=== PATIENT | male | born 1965 | race Caucasian/White ===

== ENCOUNTER → 2017-08-15 | Outpatient (CLI) | payer OTHER ==
[2014-05-05 13:34] VITALS: BMI 27.3
[~2017-08-15] MED LIST: AMOX-559 PO; DIPH0.5D12 IM; FLUT16SP19 NS; HYDR-4309 PO; HYDR2TAB74 PO; LORA-639 PO; LORA-788 PO; ONDA4TAB97 PO; PROM-110 PO; PROM5SYR PO
--- NOTE | 2017-08-15 18:27 | RADIOLOGY IMAGING REPORT ---
FACILITY: [facility] PATIENT NAME: Jhon Awan : 1965 MR: [id number] V: [id number] EXAM DATE: ORDERING PHYSICIAN: SALVADOR PADRON TECHNOLOGIST: [place] [facility] [place] Patient: Jhon Awan : 1965 Visit/Account:[id number] Date of Sevice: 08/15/2017 Chest 2 views: HISTORY: History of pneumonia proximally one year ago, current symptoms or cough, congestion, no pain COMPARISON: 05/04/2014 FINDINGS: Frontal and lateral chest: Cardiomediastinal silhouette is within normal limits. There is p rominence of the perihilar markings and peribronchial thickening, findings which can be seen with bro nchitis, viral pneumonitis or exacerbation of reactive airways disease. There is no lobar consolidati on or pleural effusion. No pneumothorax. Pulmonary vasculature is normal. Osseous structures are within normal limits. IMPRESSION: Findings suggesting bronchitis, viral pneumonitis or exacerbation of reactive airways dis ease. There is no radiographic evidence of a focal pneumonia. Report Dictated By: Chichi Whitmore MD at 08/15/2017 6:22 PM Report E-Signed By: hCichi Whitmore MD at 08/15/2017 6:23 PM WSN:[id number]
== END ==
LOC: RAD 16:35
PROVIDERS: ATTEND Emergency Medicine
DX: Z87.01 Personal history of pneumonia (recurrent) (principal); R05 Cough
CPT/HCPCS: 71046

== ENCOUNTER 2018-01-25 01:43 | Emergency (ER) | payer OTHER ==
[2014-05-05 13:34] VITALS: Wt 88.5 kg
[~2018-01-25 01:43] MED LIST changes: -DIA5 PO; -OXYC-865 PO; -PRED20TA6 PO
--- NOTE | 2018-01-25 01:49 | ER Report ---
History and Physical Time Seen By MD: 01:49 HPI/ROS CHIEF COMPLAINT: Lumbar back pain with radiation down the left leg posteriorly to the calf HISTORY OF PRESENT ILLNESS: Patient is a 52-year-old male with known history of disc herniation here with complaints of acute exacerbation of lower back pain with now with radiation down the left leg. Patient does not take medications at baseline however attempted taking a tramadol and gabapentin this evening without relief of symptoms. Patient denies fevers, bowel or bladder incontinence , bladder retention, saddle anesthesia. Patient reports worsening pain with movement. Denies trauma to the back. REVIEW OF SYSTEMS: Constitutional: No fever, no chills. Eyes: No discharge. ENT: No sore throat. Cardiovascular: No chest pain, no palpitations. Respiratory: No cough, no shortness of breath. Gastrointestinal: No abdominal pain, no vomiting. Genitourinary: No hematuria. Musculoskeletal: + severe back pain. Skin: No rashes. Neurological: + back pain with radiation to knee/calf Allergies: Coded Allergies: glycopyrrolate (Verified Allergy, Severe, SWELLING, 01/25/18) hydroxyzine (Verified Allergy, Severe, SWELLING, 01/25/18) meperidine (Verified Allergy, Severe, SWELLING, 01/25/18) Home Meds Active Scripts Prednisone (PREDNISONE) 20 Mg Tablet, 40 MG PO QDAY for 5 Days, #10 TAB Prov:VIKTOR OH DO 01/25/18 Diazepam (VALIUM) 5 Mg Tablet, 5 MG PO 2-3XD, #15 TAB Prov:VIKTOR OH DO 01/25/18 Oxycodone Hcl/Acetaminophen (PERCOCET 5-325 MG TABLET) 1 Each Tablet, 1 EACH PO Q4H Y for PAIN, #12 TAB 0 Refills Prov:VIKTOR OH DO 01/25/18 Fluticasone Prop 50 Mcg Ns (FLONASE 50 MCG NS) 16 Gm [place].susp, 2 SPRAYS NS QDAY, #1 BOT Prov:SALVADOR PADRON MD 08/15/17 Hx Smoking: No Smoking Status: Never Smoker Constitutional Vital Sign - Last 24 Hours 01/25/18 01/25/18 01/25/18 01/25/18 01:48 01:58 02:00 02:13 Temp 97.6 Pulse 67 71 73 Resp 24 B/P (MAP) 124/86 129/76 (93) Pulse Ox 100 99 95 O2 Delivery Nasal Cannula 01/25/18 01/25/18 01/25/18 01/25/18 02:28 02:30 03:00 03:13 Pulse 68 88 B/P (MAP) 111/83 (92) 126/92 (103) Pulse Ox 96 100 01/25/18 01/25/18 01/25/18 01/25/18 03:28 03:30 03:45 04:00 Pulse 90 83 ??? B/P (MAP) 110/81 (91) 111/71 (84) Pulse Ox 98 100 99 01/25/18 01/25/18 01/25/18 01/25/18 04:05 04:20 04:30 04:35 Pulse 63 70 79 B/P (MAP) 110/77 (88) Pulse Ox 100 99 100 01/25/18 04:40 Pulse ??? Pulse Ox 100 Physical Exam General Appearance: The patient is alert, has no immediate need for airway protection and no signs of toxicity. + Moderate distress secondary to pain Eyes: Pupils equal and round no pallor or injection. ENT, Mouth: Mucous membranes are moist. Respiratory: There are no retractions, lungs are clear to auscultation. Cardiovascular: Regular rate and rhythm. Gastrointestinal: Abdomen is soft and non tender, no masses, bowel sounds normal. Neurological: No focal neurological deficits. Skin: Warm and dry, no rashes. Musculoskeletal: + Lumbar midline and left paraspinal muscle tenderness, positive straight leg raise test of left extremity [ ] DIFFERENTIAL DIAGNOSIS: After history and physical exam differential diagnosis was considered for disc herniation, muscle spasm, muscle strain, cauda equina Medical Decision Making Data Points Result Diagram: 01/25/18 0232 01/25/18 0232 Laboratory Hematology Test 01/25/18 02:32 01/25/18 04:48 Red Blood Count 4.33 M/uL (4.00-5.60) Mean Corpuscular Volume 87.9 fL (80.0-96.0) Mean Corpuscular Hemoglobin 30.4 pg (26.0-33.0) Mean Corpuscular Hemoglobin Concent 34.6 g/dL (32.0-36.0) Red Cell Distribution Width 13.7 % (11.5-14.5) Mean Platelet Volume 7.0 fL (7.2-11.1) Neutrophils (%) (Auto) 62.9 % (39.4-72.5) Lymphocytes (%) (Auto) 30.1 % (17.6-49.6) Monocytes (%) (Auto) 4.8 % (4.1-12.4) Eosinophils (%) (Auto) 1.7 % (0.4-6.7) Basophils (%) (Auto) 0.5 % (0.3-1.4) Nucleated RBC Relative Count (auto) 0.1 /100WBC Neutrophils # (Auto) 3.9 K/uL (2.0-7.4) Lymphocytes # (Auto) 1.9 K/uL (1.3-3.6) Monocytes # (Auto) 0.3 K/uL (0.3-1.0) Eosinophils # (Auto) 0.1 K/uL (0.0-0.5) Basophils # (Auto) 0.0 K/uL (0.0-0.1) Nucleated RBC Absolute Count (auto) 0.01 K/uL Erythrocyte Sedimentation Rate 1 mm/HOUR (0-20) Sodium Level 138 mmol/L (137-145) Potassium Level 3.7 mmol/L (3.5-5.0) Chloride Level 106 mmol/L (98-107) Carbon Dioxide Level 23 mmol/L (22-30) Blood Urea Nitrogen 19 mg/dl (9-21) Creatinine 1.00 mg/dl (0.66-1.25) Glomerular Filtration Rate Calc > 60.0 Random Glucose 110 mg/dl (75-110) Calcium Level 8.5 mg/dl (8.4-10.2) Total Bilirubin 0.5 mg/dl (0.2-1.3) Aspartate Amino Transf (AST/SGOT) 26 U/L (0-35) Alanine Aminotransferase (ALT/SGPT) 45 U/L (0-56) Alkaline Phosphatase 63 U/L (0-126) C-Reactive Protein 0.9 mg/dl (<1.0) Total Protein 5.6 g/dl (6.3-8.2) Albumin 3.4 g/dl (3.5-5.0) Urine Color Yellow Urine Clarity Clear Urine pH 7.0 pH (4.8-9.5) Urine Specific [place] 1.019 Urine Protein Negative mg/dL (NEGATIVE) Urine Glucose (UA) Negative mg/dL (NEGATIVE) Urine Ketones Trace mg/dL (NEGATIVE) Urine Blood Negative (NEGATIVE) Urine Nitrite Negative (NEGATIVE) Urine Bilirubin Negative (NEGATIVE) Urine Urobilinogen Negative mg/dL (0.2-1.9) Urine Leukocyte Esterase Negative (NEGATIVE) Urine RBC None /HPF (0-2/HPF) Urine WBC 1 /HPF (0-5/HPF) Urine Squamous Epithelial Cells None /LPF (</=FEW) Urine Bacteria Negative /HPF (NONE-FEW) Urine Mucus None /HPF (NONE-FEW) Chemistry Test 01/25/18 02:32 01/25/18 04:48 White Blood Count 6.3 k/uL (4.5-11.0) Red Blood Count 4.33 M/uL (4.00-5.60) Hemoglobin 13.2 g/dL (14.0-18.0) Hematocrit 38.1 % (42.0-52.0) Mean Corpuscular Volume 87.9 fL (80.0-96.0) Mean Corpuscular Hemoglobin 30.4 pg (26.0-33.0) Mean Corpuscular Hemoglobin Concent 34.6 g/dL (32.0-36.0) Red Cell Distribution Width 13.7 % (11.5-14.5) Platelet Count 184 K/uL (150-450) Mean Platelet Volume 7.0 fL (7.2-11.1) Neutrophils (%) (Auto) 62.9 % (39.4-72.5) Lymphocytes (%) (Auto) 30.1 % (17.6-49.6) Monocytes (%) (Auto) 4.8 % (4.1-12.4) Eosinophils (%) (Auto) 1.7 % (0.4-6.7) Basophils (%) (Auto) 0.5 % (0.3-1.4) Nucleated RBC Relative Count (auto) 0.1 /100WBC Neutrophils # (Auto) 3.9 K/uL (2.0-7.4) Lymphocytes # (Auto) 1.9 K/uL (1.3-3.6) Monocytes # (Auto) 0.3 K/uL (0.3-1.0) Eosinophils # (Auto) 0.1 K/uL (0.0-0.5) Basophils # (Auto) 0.0 K/uL (0.0-0.1) Nucleated RBC Absolute Count (auto) 0.01 K/uL Erythrocyte Sedimentation Rate 1 mm/HOUR (0-20) Glomerular Filtration Rate Calc > 60.0 Calcium Level 8.5 mg/dl (8.4-10.2) Total Bilirubin 0.5 mg/dl (0.2-1.3) Aspartate Amino Transf (AST/SGOT) 26 U/L (0-35) Alanine Aminotransferase (ALT/SGPT) 45 U/L (0-56) Alkaline Phosphatase 63 U/L (0-126) C-Reactive Protein 0.9 mg/dl (<1.0) Total Protein 5.6 g/dl (6.3-8.2) Albumin 3.4 g/dl (3.5-5.0) Urine Color Yellow Urine Clarity Clear Urine pH 7.0 pH (4.8-9.5) Urine Specific [place] 1.019 Urine Protein Negative mg/dL (NEGATIVE) Urine Glucose (UA) Negative mg/dL (NEGATIVE) Urine Ketones Trace mg/dL (NEGATIVE) Urine Blood Negative (NEGATIVE) Urine Nitrite Negative (NEGATIVE) Urine Bilirubin Negative (NEGATIVE) Urine Urobilinogen Negative mg/dL (0.2-1.9) Urine Leukocyte Esterase Negative (NEGATIVE) Urine RBC None /HPF (0-2/HPF) Urine WBC 1 /HPF (0-5/HPF) Urine Squamous Epithelial Cells None /LPF (</=FEW) Urine Bacteria Negative /HPF (NONE-FEW) Urine Mucus None /HPF (NONE-FEW) Urinalysis Test 01/25/18 04:48 Urine Color Yellow Urine Clarity Clear Urine pH 7.0 pH (4.8-9.5) Urine Specific [place] 1.019 Urine Protein Negative mg/dL (NEGATIVE) Urine Glucose (UA) Negative mg/dL (NEGATIVE) Urine Ketones Trace mg/dL (NEGATIVE) Urine Blood Negative (NEGATIVE) Urine Nitrite Negative (NEGATIVE) Urine Bilirubin Negative (NEGATIVE) Urine Urobilinogen Negative mg/dL (0.2-1.9) Urine Leukocyte Esterase Negative (NEGATIVE) Urine RBC None /HPF (0-2/HPF) Urine WBC 1 /HPF (0-5/HPF) Urine Squamous Epithelial Cells None /LPF (</=FEW) Urine Bacteria Negative /HPF (NONE-FEW) Urine Mucus None /HPF (NONE-FEW) EKG/Imaging Imaging LUMBAR SPINE 4 VIEWS HISTORY: BACK PAIN AP, LATERAL, OBLIQUE AND SACRAL VIEWS OF LUMBAR SPINE. (5 views.) FINDINGS: No acute bony pathology. Vertebral bodies are well maintained with respect to height and alignment. Minimal anterior lipping of the superior endplate of L5. Slight disc space narrowing at the L4-5. Postcontrast well-maintained. No spondylolysis. No spondylolisthesis. Facet joints well-maintained with no facet arthropathy of any significance. IMPRESSION: 1. Negative lumbar spine for acute pathology or any significant DJD. ED Course/Re-evaluation ED Course Patient is a 52-year-old male here with complaints of lumbar back pain with radiation down the left leg in the setting of chronic lower back pain. Patient reports worsening pain for the course of the last several hours. X-ray imaging showed no acute fractures. Labs are unremarkable, inflammatory markers are negative. Patient was started on a course of prednisone, was given diazepam, fluid bolus and analgesia. He is discharged with a prescription for Zofran, prednisone, diazepam for symptom management and advised to follow-up with orthopedics in one week for further evaluation. Patient denies fevers, chills, recent trauma, saddle anesthesia, bowel or bladder incontinence or urinary retention. Decision to Disposition Date: Jan 25, 2018 Decision to Disposition Time: 04:50 Depart Departure Latest Vital Signs Vital Signs Date Time Temp Pulse Resp B/P (MAP) Pulse Ox O2 Delivery O2 Flow Rate FiO2 01/25/18 04:40 ??? 100 01/25/18 04:30 110/77 (88) 01/25/18 01:48 97.6 24 Nasal Cannula Impression: Primary Impression: Back pain Condition: Improved Disposition: HOME OR SELF-CARE Referrals: SALVADOR PADRON MD (PCP) New Scripts Prednisone (PREDNISONE) 20 Mg Tablet 40 MG PO QDAY for 5 Days, #10 TAB Prov: VIKTOR OH DO 01/25/18 Diazepam (VALIUM) 5 Mg Tablet 5 MG PO 2-3XD, #15 TAB Prov: VIKTOR OH DO 01/25/18 Oxycodone Hcl/Acetaminophen (PERCOCET 5-325 MG TABLET) 1 Each Tablet 1 EACH PO Q4H Y for PAIN, #12 TAB 0 Refills Prov: VIKTOR OH DO 01/25/18 Patient Instructions: Acute Low Back Pain (ED), Diazepam (By mouth), Oxycodone/ Acetaminophen (By mouth) Additional Instructions: Take 40 mg of prednisone daily for 5 days. You may take 1 tablet of Percocet every 4-6 hours as needed for pain. You may take 1 tablet of Valium every 6-8 hours as needed for muscle spasm. These follow-up with your orthopedic surgeon for further intervention the next 2 days. Please return promptly if you develop worsening fevers, worsening pain, nausea, vomiting, bowel or bladder incontinence. VIKTOR OH DO Jan 25, 2018 01:49
[2018-01-25] MEDS ORDERED: EMS NS 0.9%(*) 1000 ML BAG 1,000 ML IV ONE (02:00)
[2018-01-25] MEDS ORDERED: HYDROmorphone* 1 MG/ML 1 MG/ML ML IVP ONE (02:05)
[2018-01-25] MEDS ORDERED: predniSONE 20 MG TAB PO ONE (02:05)
[2018-01-25] MEDS ORDERED: HYDROmorphone HCL 2 MG/ML SDV IVP ONE (02:10)
[2018-01-25] MEDS ORDERED: DIAZEPAM 50 MG/10 ML MDV IVP ONE (02:20)
[2018-01-25 02:41] LABS: PLATELET COUNT, AUTOMATED 184 K/uL (150-450)
[2018-01-25 04:30] VITALS: BP 110/77
[2018-01-25] MEDS ORDERED: OXYC-865 PO (04:31)
[2018-01-25] MEDS ORDERED: DIA5 PO (04:31)
[2018-01-25] MEDS ORDERED: PRED20TA6 PO (04:34)
--- NOTE | 2018-01-25 04:49 | RADIOLOGY IMAGING REPORT ---
FACILITY: [facility] - [place] PATIENT NAME: Jhon Awan : 1965 MR: [id number] V: [id number] EXAM DATE: ORDERING PHYSICIAN: VIKTOR OH TECHNOLOGIST: Location: [facility] Patient: Jhon Awan : 1965 Visit/Account:[id number] Date of Sevice: 01/25/2018 LUMBAR SPINE 4 VIEWS HISTORY: BACK PAIN AP, LATERAL, OBLIQUE AND SACRAL VIEWS OF LUMBAR SPINE. (5 views.) FINDINGS: No acute bony pathology. Vertebral bodies are well maintained with respect to height and alignment. M inimal anterior lipping of the superior endplate of L5. Slight disc space narrowing at the L4-5. Postcontrast well-maintained. No spondylolysis. No spondylolisthesis. Facet joints well-maintained with no facet arthropathy of any significance. IMPRESSION: 1. Negative lumbar spine for acute pathology or any significant DJD. Report Dictated By: Anthony Saavedra MD at 01/25/2018 4:43 AM Report E-Signed By: Anthony Saavedra MD at 01/25/2018 4:45 AM WSN:[id number]
[2018-01-25] MEDS ORDERED: oxyCODONE/ACETAMIN 5/325MG TH 2 TAB/BOTTLE PO ONE (04:55)
[2018-01-25] MEDS ORDERED: DIAZEPAM 5 MG TAB TH 2 TAB/BOTTLE PO ONE (04:55)
== END 2018-01-25 05:07 | disposition home or self-care (01) ==
LOC: ER 01:45
DX: M54.5 Low back pain (principal)
CPT/HCPCS: 72120; 81001; 85025; 85651; 86140; 96361; 96374; 96375; 99284; J1170; J3360; J7512; 82040; 82247; 82310; 82374; 82435; 82565; 82947; 84075; 84132; 84155; 84295; 84450; 84460; 84520

== ENCOUNTER → 2018-01-25 | Outpatient (CLI) | payer OTHER ==
[2014-05-05 13:34] VITALS: BMI 27.3
[~2018-01-25] MED LIST changes: +DIA5 PO; +OXYC-865 PO; +PRED20TA6 PO
== END ==
LOC: AMB 01:20
PROVIDERS: ATTEND Nurse Practitioner
DX: M54.5 Low back pain (principal); M79.662 Pain in left lower leg; M79.661 Pain in right lower leg
CPT/HCPCS: A0425; A0427

== ENCOUNTER 2018-02-24 16:55 | Emergency (ER) | payer OTHER ==
[2014-05-05 13:34] VITALS: Wt 88.5 kg
[~2018-02-24 16:55] MED LIST changes: +DIA5 PO; +OXYC-865 PO; +PRED20TA6 PO
[2018-02-24 17:00] VITALS: BP 110/81
[2018-02-24] MEDS ORDERED: CEFUROXIME AXETIL 250 MG TAB PO ONE (17:50)
[2018-02-24] MEDS ORDERED: DIPHTH/TETANUS/ACEL. PERTUSSIS IM ONLY ONE (17:50)
[2018-02-24] MEDS ORDERED: BACITRACIN OINT 0.9 GM PKT TP ONE (17:50)
[2018-02-24] MEDS ORDERED: CEPH500T7 PO (17:54)
--- NOTE | 2018-02-24 17:55 | ER Report ---
History and Physical Time Seen By MD: 17:20 Hx. of Stated Complaint: SPLINTER TO RIGHT RING FINGER HPI/ROS CHIEF COMPLAINT: wood splinter HISTORY OF PRESENT ILLNESS: PT was moving old pieces of wood and had a splinter that went thru the tip of his left ring finger. PT tried to pull out the splinter on the lateral end but it broke. Pt still has the medial end sticking thru the finger. PT did not attempt to remove it due to fear it would break again. REVIEW OF SYSTEMS: GEN: no fever or chills Skin+ Puncture wound Neuro: no numbness or tingling Allergies: Coded Allergies: glycopyrrolate (Verified Allergy, Severe, SWELLING, 01/25/18) hydroxyzine (Verified Allergy, Severe, SWELLING, 01/25/18) meperidine (Verified Allergy, Severe, SWELLING, 01/25/18) Home Meds Active Scripts Cephalexin 500 Mg Tab (KEFLEX 500 MG TAB) 500 Mg Tablet, 500 MG PO TID, #21 TAB Prov:MARCIANO GIFFORD DO 02/24/18 Fluticasone Prop 50 Mcg Ns (FLONASE 50 MCG NS) 16 Gm [place].susp, 2 SPRAYS NS QDAY, #1 BOT Prov:SALVADOR PADRON MD 08/15/17 Discontinued Scripts Prednisone (PREDNISONE) 20 Mg Tablet, 40 MG PO QDAY for 5 Days, #10 TAB Prov:VIKTOR OH DO 01/25/18 Diazepam (VALIUM) 5 Mg Tablet, 5 MG PO 2-3XD, #15 TAB Prov:VIKTOR OH DO 01/25/18 Oxycodone Hcl/Acetaminophen (PERCOCET 5-325 MG TABLET) 1 Each Tablet, 1 EACH PO Q4H PRN for PAIN, #12 TAB 0 Refills Prov:VIKTOR OH DO 01/25/18 Past Medical/Surgical History Pmhx: herniated disc Reviewed Nurses Notes: Yes Hx Smoking: No Smoking Status: Never Smoker Hx Substance Use Disorder: No Constitutional Vital Sign - Last 24 Hours 02/24/18 17:00 Pulse 64 Resp 18 B/P (MAP) 110/81 Pulse Ox 94 Physical Exam General appearance: alert no distress Left hand: There is no significant swelling. There is no obvious deformity to the hand. There is piece of wood visible on tip of ring finger thru fat pad on volar aspect Skin:+puncture wound to left ring finger Neurologic exam: The patient has normal sensation distal to the injury. Tendon function is intact. Vascular exam: Normal pulses and capillary refill in the fingers DIFFERENTIAL DIAGNOSIS: After history and physical exam differential diagnosis was considered for foreign body Medical Decision Making ED Course/Re-evaluation ED Course 02/24/2018 6:00:32 pm Pts wedding ring was removed incase of infection. PT finger was cleansed and sterilized. Digital block was preformed using Lido 1% 2ml to r ring finger Using aligator forceps was able to pull out the piece of wood that measured 1cm in length. wound was irrigated. Let pt know that there is a risk of infection with wood FB. To best of my ability all wood was removed however small pieces are always possibly left behind. Pt told to return for any signs of infection Decision to Disposition Date: Feb 24, 2018 Decision to Disposition Time: 18:02 Depart Departure Latest Vital Signs Vital Signs Date Time Temp Pulse Resp B/P (MAP) Pulse Ox O2 Delivery O2 Flow Rate FiO2 02/24/18 17:00 64 18 110/81 94 Impression: Primary Impression: Splinter in skin Condition: Improved Disposition: HOME OR SELF-CARE Referrals: SALVADOR PADRON MD (PCP) SVETLANA ECHEVARRIA MD as needed New Scripts Cephalexin 500 Mg Tab (KEFLEX 500 MG TAB) 500 Mg Tablet 500 MG PO TID, #21 TAB Prov: MARCIANO GIFFORD DO 02/24/18 Patient Instructions: Soft Tissue Foreign Body (GEN) Additional Instructions: We were able to remove the spinter from your finger. It is always possible that small wood fibers could still be within the puncture although the major slab was removed. Keep an eye for infection (increased pain, swelling, drainage, redness). Wood is an organic substance that can cause infections. Follow up if any signs of infection occur. Keflex three times a day until finished (start in am). MARCIANO GIFFORD DO Feb 24, 2018 17:55
== END 2018-02-24 18:08 | disposition home or self-care (01) ==
LOC: ER 17:47
DX: S60.455A Superficial foreign body of left ring finger, initial encounter (principal)
CPT/HCPCS: 90471; 90715; 99283; C9399

== ENCOUNTER → 2018-05-22 | Outpatient (CLI) | payer OTHER ==
[2014-05-05 13:34] VITALS: BMI 27.3
[~2018-05-22] MED LIST changes: +CEPH500T7 PO; -HYDR-4309 PO; +HYDR-653 PO; +TRIA15CR40 TP
[2018-05-22 11:47] LABS: PLATELET COUNT, AUTOMATED 223 K/uL (150-450)
== END ==
LOC: LAB 11:20
PROVIDERS: ATTEND Emergency Medicine
DX: R21 Rash and other nonspecific skin eruption (principal)
CPT/HCPCS: 36415; 82040; 82247; 82310; 82374; 82435; 82565; 82947; 84075; 84132; 84155; 84295; 84450; 84460; 84520; 85025; 86038; 86140